=== PATIENT | male | born 1985 | race Caucasian/White ===

== ENCOUNTER 2021-11-16 16:55 | Emergency (ER) | payer OTHER, SELFPAY ==
[2021-11-16 17:13] VITALS: BP 124/84; PULSE 75; RESP 20; TEMP 36.7; O2SAT 96
--- NOTE | 2021-11-16 17:15 | DI.CT_ITS ---
Exam(s) CT ABDOMEN PELVIS W EXAM: CT ABDOMEN PELVIS W CLINICAL HISTORY: right lower abdomen pain. TECHNIQUE: Imaging Protocol: Axial computed tomography images with coronal and sagittal reformatted images were created and reviewed CONTRAST MATERIAL: Intravenous: Omnipaque 100cc Oral: None COMPARISON: No exams were available for comparison FINDINGS: VISUALIZED LUNG BASES: No nodules nor pleural effusions evident. ABDOMEN: There is no ascites. LIVER: There are no focal hepatic lesions evident . GALLBLADDER/BILIARY: No obvious gallbladder pathology. CBD is not dilated. PANCREAS: No evidence of pancreatic mass nor dilatation of the pancreatic duct. SPLEEN: Spleen is not enlarged. No obvious intrasplenic lesions. Splenic and portal veins are paten t. ADRENALS: There is nodule in the lateral limb of the right adrenal gland which measures 1.4 x 1.3 cm. Density units are higher than a typical benign adenoma. Left adrenal gland unremarkable. KIDNEYS:No cysts evident. No solid renal masses. No calculi nor hydronephrosis.. ABDOMINAL AORTA: Abdominal aorta is not enlarged. LYMPH NODES:There is no retroperitoneal nor paraaortic adenopathy. ABDOMINAL WALL: No evidence of significant anterior abdominal wall nor inguinal hernia. GI: There is no evidence of bowel obstruction, free air, nor abscess. PELVIS: GI: No evidence of appendicitis.The appendix diameter is upper normal. There is a small calcificatio n in the mid aspect of the appendix. No periappendiceal streaking nor regional lymphadenopathy.There is no significant sigmoid diverticular disease. LYMPH NODES: There is no intrapelvic nor inguinal adenopathy. REPRODUCTIVE: Prostate size upper normal. Seminal vesicles unremarkable. URINARY BLADDER: No calculi nor obvious masses evident OSSEOUS: No significant osseous lesions. IMPRESSION: 1. No acute findings. No evidence of acute appendicitis nor diverticulitis. 2. Incidentally noted is a 14 x 13 millimeter nodule in the right adrenal gland. Possibly an inciden samson adenoma but requires further imaging with noninfused MRI using in and out of phase chemical shift sequences to determine specificity with respect to this being an adenoma. Also correlation with [facility] history and comparison to any prior outside CT scans, if they exist. RADIATION DOSE DELIVERED: 1,137.62mGy.cm Total DLP DATA REPOSITORY: All CT scans at this facility are submitted to the National Radiology Data Registry (NRDR) Dose Index Registry (DIR) with the [employer] ([employer]). RADIATION OPTIMIZATION: All CT scans at this facility use at least one of these dose optimization te chniques: automated exposure control; mA and/or kV adjustment per patient size (includes targeted exa ms where dose is matched to clinical indication); or iterative reconstruction.
--- NOTE | 2021-11-16 17:30 | ED.GENADUL_ITS ---
Discharge Plan Disposition Patient Disposition: HOME Condition: Stable Discharge Details Clinical Impression: Abdominal pain Primary Care Provider: Unknown,Unknown ED Provider: Neeraj Zuleta Home Meds and New Rx's Prescriptions: Continued melatonin 5 mg Tablet 5 mg PO HS Discharge Instructions Instructions: Abdominal Pain (ED) Additional Instructions: your blood work and cat scan did not show any emergent findings at this time. There was a small adrenal adenoma which you've likely had for a while and is unrelated to your pain. This should be followed up with your primary care provider. If you are still having pain next week you should follow up with them as well if you feel more ill, have severe worsening pain or persistent vomiting return to the emergency department Medical Decision Making 36 yo male who denies chronic medical problems, no prior abdominal surgeries, no excessive alcohol use or drug use, comes in with cc of right lower abdomen pain worsening throughout the day. He denies having pain like this in the past, no n/v and denies chest pain, fevers, chills. He denies testicle pain or swelling. He appears well on exam, has a soft nondistended abdomen and is tender with soft palpation to the rlq, no guarding or rebound. Given locatin of the pain will proceed with cbc, cmp, lipase and ct abdomen pelvis to evaluate for appendicitis labs and imaging unremarkable, ct shows adrenal adenoma which he was informed of and advised to f/u with pcp with this. He is stable, minimal rlq tenderness. He has been constipated recently so advised to try stool softeners and laxatives. Return precautions given Differential Diagnosis Differential Diagnosis: appendicitis, colitis, constipation Imaging Data Radiologic Study: Attestation: I personally reviewed and interpreted this imaging study as follows: Imaging: CT Scan Radiologist's impression: IMPRESSION: 1. No acute findings of the abdomen or pelvis. 2. A non inflamed appendix is identified. 3. No biliary tract disease or urinary tract disease. 4. Incidental finding of a small nodule of the right adrenal gland measuring 16 x 15 mm. Follow-up imaging may be warranted with MRI or CT adrenal protocol. Recommend comparison with previous images if available. Recommend correlation with any known history of malignancy. This is likely a small adenoma, but this is not definitive based on single study 5. Mild fatty liver change. 6. Small hiatal hernia. No acute features. Lab Data Lab results reviewed: Yes I reviewed the patient's lab results. HPI General Mode of arrival: ambulatory . Date/Time Provider Initiated Documentation: 11/16/21 17:24 . Limitations to Documentation: no limitations . Information obtained by: patient . History of Present Illness 36 year old M presents to the emergency department with the chief complaint of abdomen pain, described as moderate, with intensity rated at 7. Quality is described as sharp, and is localized to the abdomen. Patient reports no radiation. Patient started experiencing this day(s) (1) and it has been constant. No relieving factors improve symptom(s), No exacerbating factors reported . Patient notes no other symptoms.. Patient did receive the following treatments prior to arrival, none Related Data Home Medications Medication Instructions Recorded Confirmed melatonin 5 mg tablet 5 mg PO HS 11/16/21 11/16/21 Allergies Allergy/AdvReac Type Severity Reaction Status Date / Time Penicillins AdvReac Mild Skin Rash Unverified 11/16/21 18:09 General Stated Complaint: Abd Prob JOSEPH: 3 Review of Systems All systems reviewed & are unremarkable except as noted in HPI and below Constitutional Constitutional: Denies chills, Denies fever(s) and Denies weakness Eyes Eyes: Denies loss of vision Cardiovascular Cardiovascular: Denies chest pain and Denies dyspnea Respiratory Respiratory: Denies cough and Denies dyspnea Gastrointestinal Gastrointestinal: Denies nausea and Denies vomiting Musculoskeletal Musculoskeletal: Denies joint swelling Neurologic Neurologic: Denies loss of vision and Denies weakness PFSH All Active Problems (Updated 11/16/21 @ 19:24 by Neeraj Zuleta MD) Abdominal pain (Acute) Social History Smoking/Tobacco Use Status: Never Smoking risk assessment performed?: Yes Alcohol Intake: current Alcohol Intake frequency: a few times a month Drug use: Socially Substance use type: marijuana Do you feel safe at home: Yes Do you feel safe in your relationship?: Yes Exam Const General: no acute distress Orientation: alert HENMT Head: normal to inspection Ears: external ears normal General nose exam: external nose normal Mouth: moist mucous membranes Eyes General: appearance normal, both eyes and all related structures Neck Neck: normal visual inspection Resp Effort & Inspection: normal respiratory effort and able to speak in complete sentences Cardio Rate: regular rate GI Palpation: soft Skin General skin exam: no rashes or lesions noted Neuro General: patient alert and patient oriented x3 Extrem General: normal to inspection Psych Mental Status: mental status grossly normal Course Vital Signs Vital signs: Vital Signs Temperature 36.7 C 11/16/21 17:13 Pulse 75 11/16/21 17:13 Respiratory Rate 20 11/16/21 17:13 Blood Pressure 124/84 11/16/21 17:13 Pulse Oximetry 96 11/16/21 17:13 Temperature 36.7 C 11/16/21 17:13 Temperature Source Oral 11/16/21 17:13 Pulse 75 11/16/21 17:13 Respiratory Rate 20 11/16/21 17:13 Blood Pressure 124/84 11/16/21 17:13 Blood Pressure Position Sitting 11/16/21 17:13 Pulse Oximetry 96 11/16/21 17:13 Pain Level 8 11/16/21 17:13
[2021-11-16 17:41] VITALS: PULSE 80; RESP 22; O2SAT 96
[2021-11-16 17:46] LABS: Source Nasal/Nares
[2021-11-16] MEDS: Normal Saline 1,000 ML 1000 ML IV (17:53)
[2021-11-16 17:55] LABS: Bilirubin Negative (Negative); Blood Negative (Negative); Clarity Clear (Clear); Glucose Negative (Negative); Ketones Trace mg/dL (Negative); Leukocyte Esterase Negative (Negative); Nitrite Negative (Negative); Specific Gravity 1.025 (1.005-1.025); Urobilinogen 0.2 EU/dL (Up TO 0.2)
[2021-11-16] MEDS: Ketorolac 15 MG/ML VIAL IVP (17:55)
[2021-11-16 17:59] LABS: Abs Immature Grans 0.01 10^3/uL (0.0-0.06); Absolute Basophil Count 0.08 10^3/uL (0.0-0.2); Absolute Eosinophil Count 0.37 10^3/uL (0.0-0.7); Absolute Neutrophil Count 4.08 10^3/uL (1.2-6.7); Eosinophils % 4.5; HGB 16.9 g/dL (13.5-17.5); Immature Grans % 0.1; Lymphocytes % 32.8; MCH 27.4 pg (27.0-33.0); MCHC 33.8 % (32.0-36.0); MCV 81 fL (80-95); MPV 10.1 fL (8.0-11.0); Monocytes % 12.1; Neutrophils % 49.5; Platelet Count 234 10^3/uL (130-400); RBC 6.17 10^6/uL (4.36-5.78); RDW 12.2 % (11.8-14.1); RDW-SD 35.6 fL; WBC 8.24 10^3/uL (4.4-10.8)
[2021-11-16 18:24] LABS: ALT 63 U/L (16-63); AST 21 U/L (15-37); Albumin 4.3 g/dL (3.4-5.0); Alkaline Phosphatase 57 U/L (46-116); Anion Gap 6.6 mmol/L (3-11); BUN 19 mg/dL (7-18); Bilirubin, Total 0.4 mg/dL (0.2-1.0); CO2 31.4 mmol/L (21.0-32.0); CREATININE 1.1 mg/dL (0.70-1.30); Calcium 9.5 mg/dL (8.5-10.1); Chloride 103 mmol/L (98-107); Estimated GFR 88.12 (mL/min/1.73m2); Glucose 97 mg/dL (74-106); Lipase 163 U/L (73-393); Potassium 3.9 mmol/L (3.5-5.1); Sodium 141 mmol/L (136-145); Total Protein 7.7 g/dL (6.4-8.2)
[2021-11-16] MEDS: Omnipaque 350 MG/ML 100 ML BTL IJ (18:48)
[2021-11-16 18:51] LABS: COVID-19 PCR Negative (Negative)
--- NOTE | 2021-11-16 19:13 | DI.VRAD_ITS ---
PROCEDURE INFORMATION: Exam: CT Abdomen And Pelvis With Contrast Exam date and time: 11/16/2021 6:46 PM Age: 36 years old Clinical indication: Abdominal pain; Localized; Right lower quadrant (rlq); Additional info: Rlq pain TECHNIQUE: Imaging protocol: Computed tomography of the abdomen and pelvis with contrast. Radiation optimization: All CT scans at this facility use at least one of these dose optimization techniques: automated exposure control; mA and/or kV adjustment per patient size (includes targeted exams where dose is matched to clinical indication); or iterative reconstruction. Contrast material: OMNI 350; Contrast volume: 100 ml; Contrast route: INTRAVENOUS (IV); COMPARISON: No relevant prior studies available. FINDINGS: Lungs: Lung bases are clear. Pleural spaces: No pleural effusion. Heart: Normal heart size. No pericardial effusion. No coronary artery atherosclerotic calcium visible . Liver: Diffuse mild fatty liver change. Gallbladder and bile ducts: The gallbladder is normal in size and shape. No stones or inflammatory changes. Pancreas: The pancreas is normal in contour and attenuation. Spleen: The spleen is normal in size, contour and attenuation. Adrenal glands: Right adrenal gland with a nodule on the lateral limb. This measures 16 x 15 mm. This is of uncertain significance based on this single evaluation. No prior imaging for comparison. Recommend correlation with any known history malignancy. If follow-up imaging is warranted, MRI or CT adrenal protocol should be performed. If prior images are available for comparison, these should be obtained. Kidneys and ureters: The kidneys bilaterally are unremarkable. Normal attenutation. No hydronephrosis. No calculi. Stomach and bowel: Gastric morphology is unremarkable. No edema. No gastric outlet obstruction. Small hiatal hernia. No acute features.Small bowel loops are normal in course and caliber. There is no mucosal edema or bowel wall thickening. No obstructive features.The colon contains formed fecal material. There is no bowel wall thickening. No inflammatory features. No obstruction. Appendix: A non inflamed appendix is identified. Series 2, images 61 through 55. Intraperitoneal space: Unremarkable. No free air. No significant fluid collection. Vasculature: Unremarkable. No abdominal aortic aneurysm. Lymph nodes: Unremarkable. No enlarged lymph nodes. Urinary bladder: Urinary bladder is unremarkable in appearance. No wall thickening. No intravesicular calculi. No intravesicular gas. Reproductive: Unremarkable as visualized. Bones/joints: Lumbar spine is unremarkable. No significant degenerative changes. No acute pathology. Soft tissues: Unremarkable. IMPRESSION: 1. No acute findings of the abdomen or pelvis. 2. A non inflamed appendix is identified. 3. No biliary tract disease or urinary tract disease. 4. Incidental finding of a small nodule of the right adrenal gland measuring 16 x 15 mm. Follow-up imaging may be warranted with MRI or CT adrenal protocol. Recommend comparison with previous images if available. Recommend correlation with any known history of malignancy. This is likely a small adenoma, but this is not definitive based on single study 5. Mild fatty liver change. 6. Small hiatal hernia. No acute features. Dictated and Authenticated by: Gerald Garcia MD. Ordering:ANNA Pickard MD
[2021-11-16 19:22] VITALS: BP 123/85; PULSE 67; TEMP 36.4; O2SAT 97
== END 2021-11-16 19:35 | disposition home or self-care (01) ==
PROVIDERS: Emergency Provider Emergency Medicine
DX: D35.01 Benign neoplasm of right adrenal gland; Z20.822 Contact with and (suspected) exposure to COVID-19; R10.31 Right lower quadrant pain
CPT/HCPCS: 36415; 80053; 83690; 87635; 96361; 96374; 99285; 74177; 81003; 85025; 99284; J1885; J3490

== ENCOUNTER 2024-08-04 03:00 | Outpatient (CLI) | payer SELFPAY ==
[2024-08-04 09:23] LABS: Kit/Specimen SENT
== END 2024-08-04 03:01 | disposition home or self-care (01) ==
LOC: LBO 03:01
DX: R29.898 Other symptoms and signs involving the musculoskeletal system (principal)
CPT/HCPCS: 36415